=== PATIENT | female | born 1975 | race Two or more races ===

== ENCOUNTER → 2017-01-01 | Outpatient (CLI) | payer OTHER | LOC: OD 11:14 | PROVIDERS: ATTEND Family Medicine | DX: O26.851 Spotting complicating pregnancy, first trimester (principal) | CPT/HCPCS: 36415; 84702 ==

== ENCOUNTER 2017-07-16 16:03 | Outpatient (CLI) | payer MEDICAID | END 2017-07-16 17:01 | disposition home or self-care (01) | LOC: LC 16:03 | PROVIDERS: ATTEND Obstetrics & Gynecology | PROC: 4A1HXCZ Monitoring of Products of Conception, Cardiac Rate, External Approach (ICD-10-PCS; principal; 2017-07-16) | DX: O09.523 Supervision of elderly multigravida, third trimester (principal); Z3A.34 34 weeks gestation of pregnancy | CPT/HCPCS: 59025 ==

== ENCOUNTER 2017-07-24 09:02 | Outpatient (CLI) | payer MEDICAID ==
--- NOTE | 2017-07-24 09:09 | Non Stress Test Report ---
Non Stress Test Datetime Report Generated by CPN: 07/24/2017 09:09 DEMOGRAPHIC EGA NST: 34.3 INDICATION Indication for Study: Ordered by Provider Indication for Study (NST) Other: sent from the office MONITORING Monitor Explained: Monitor Explained; Test Explained; Patient Verbalized Understanding Time on Monitor: 07/16/2017 16:16 Time off Monitor: 07/16/2017 16:37 NST Duration: 21 NST INTERVENTIONS NST Interventions: PO Hydration; Reposition Patient Physician Notified NST: Gary BABY A: [id number] BABY A Movement : Present Contraction Frequency : 0 FHR Baseline : 125 Accelerations : 15X15 Decelerations : None Variability : Moderate 6-25bpm NST Review: Meets Criteria for Reactive NST NST Review and Verified By : MELISSA Major NST Results: Reactive NST REPORT Report Trigger: Send Report
--- NOTE | 2017-07-24 09:35 | Non Stress Test Report ---
Non Stress Test Datetime Report Generated by CPN: 07/24/2017 09:35 DEMOGRAPHIC EGA NST: 35.4 INDICATION Indication for Study: Ordered by Provider Indication for Study (NST) Other: AMA MONITORING Monitor Explained: Monitor Explained; Test Explained; Patient Verbalized Understanding Time on Monitor: 07/24/2017 09:11 Time off Monitor: 07/24/2017 09:32 NST Duration: 21 NST INTERVENTIONS NST Interventions: PO Hydration; Reposition Patient Physician Notified NST: Dr Strange BABY A Movement : Present Contraction Frequency : 0 FHR Baseline : 135 Accelerations : 15X15 Decelerations : None Variability : Moderate 6-25bpm NST Review: Meets Criteria for Reactive NST NST Review and Verified By : MELISSA Vasques Results: Reactive NST REPORT Report Trigger: Send Report
== END 2017-07-24 09:35 | disposition home or self-care (01) ==
LOC: LC 09:02
PROVIDERS: ATTEND Obstetrics & Gynecology
PROC: 4A1HXCZ Monitoring of Products of Conception, Cardiac Rate, External Approach (ICD-10-PCS; principal; 2017-07-24)
DX: O09.523 Supervision of elderly multigravida, third trimester (principal); Z3A.34 34 weeks gestation of pregnancy
CPT/HCPCS: 59025

== ENCOUNTER 2017-07-27 14:42 | Outpatient (CLI) | payer MEDICAID ==
--- NOTE | 2017-07-29 00:16 | Non Stress Test Report ---
Non Stress Test Datetime Report Generated by CPN: 07/29/2017 00:16 DEMOGRAPHIC EGA NST: 36.0 INDICATION Indication for Study: Ordered by Provider Indication for Study (NST) Other: AMA VITAL SIGNS Temperature - NST: 98.1 Pulse - NST: 90 RESP - NST: 16 NBPSYS NST: 103 NBPDIA NST: 55 MONITORING Monitor Explained: Monitor Explained; Test Explained; Patient Verbalized Understanding Time on Monitor: 07/27/2017 15:01 Time off Monitor: 07/27/2017 15:34 NST Duration: 33 NST INTERVENTIONS NST Interventions: PO Hydration; Reposition Patient BABY A: [id number] BABY A Movement : Present FHR Baseline : 135 Accelerations : 15X15 Decelerations : None Variability : Moderate 6-25bpm NST Review: Meets Criteria for Reactive NST NST Review and Verified By : A Cohen RN NST Results: Reactive NST REPORT Report Trigger: Send Report
== END 2017-07-27 15:37 | disposition home or self-care (01) ==
LOC: LC 14:42
PROVIDERS: ATTEND Student in an Organized Health Care Education/Training Program
PROC: 4A1HXCZ Monitoring of Products of Conception, Cardiac Rate, External Approach (ICD-10-PCS; principal; 2017-07-27)
DX: Z34.93 Encounter for supervision of normal pregnancy, unspecified, third trimester (principal)
CPT/HCPCS: 59025

== ENCOUNTER 2017-08-17 06:36 | Inpatient (IN) | payer MEDICAID ==
[2017-08-17] MEDS ORDERED: OXYTOCIN/NORMAL SALINE 20 UNIT/1,000 ML RTUINJ IV PRN ×2 (06:47→14:55)
[2017-08-17] MEDS ORDERED: RINGERS SOLUTION,LACTATED 1,000 ML IV PRN (06:47)
[2017-08-17] MEDS ORDERED: RINGERS SOLUTION,LACTATED 300 ML IV ONE (06:47)
[2017-08-17 07:23] LABS: ABSOLUTE LYMPHOCYTES (AUTO) 1.3 10^3/uL (0.5-4.7); ABSOLUTE MONOCYTES (AUTO) 0.3 10^3/uL (0.1-1.4); BASOPHILS % (AUTO) 0.4 % (0-2); EOSINOPHILS % (AUTO) 0.4 % (0-6); HEMATOCRIT 35.9 % (36.0-47.0); HEMOGLOBIN 12.5 g/dL (12.0-15.5); HGB HCT DIFFERENCE 1.6; LYMPHOCYTES % (AUTO) 15.1 % (13-45); MEAN CORPUSCULAR HEMOGLOBIN 32.4 pg (27.0-33.4); MEAN CORPUSCULAR HGB CONC 34.7 g/dL (32.0-36.0); MEAN CORPUSCULAR VOLUME 94 fl (80-97); MONOCYTES % (AUTO) 3.6 % (3-13); RED BLOOD COUNT 3.84 10^6/uL (3.72-5.28); RED CELL DISTRIBUTION WIDTH 14.2 % (11.5-14.0); SEGMENTED NEUTROPHILS % (AUTO) 80.5 % (42-78); WHITE BLOOD COUNT 8.7 10^3/uL (4.0-10.5)
[2017-08-17 07:32] LABS: APPEARANCE,URINE CLOUDY; BILIRUBIN,URINE NEGATIVE (NEGATIVE); GLUCOSE, URINE NEGATIVE (NEGATIVE); KETONES,URINE NEGATIVE (NEGATIVE); LEUKOCYTE ESTERASE,URINE LARGE (NEGATIVE); NITRITE,URINE NEGATIVE (NEGATIVE); PROTEIN,URINE NEGATIVE (NEGATIVE); URINE SPECIFIC GRAVITY 1.014; UROBILINOGEN,URINE NEGATIVE mg/dL (<2.0)
[2017-08-17 07:50] LABS: URINE BARBITURATES SCREEN NEGATIVE; URINE METHADONE SCREEN NEGATIVE; URINE OPIATES LOW NEGATIVE; URINE PHENCYCLIDINE SCREEN NEGATIVE
[2017-08-17] MEDS ORDERED: MISOPROSTOL 0.2 MG TABLET ONE (08:17)
[2017-08-17] MEDS ORDERED: LIDOCAINE 1% INJ-PF (10 MG/ML) 30 ML SDV ONE (08:17)
[2017-08-17] MEDS ORDERED: OXYTOCIN/NORMAL SALINE 20 UNIT/1,000 ML RTUINJ ONE (08:17)
[2017-08-17] MEDS ORDERED: PENICILLIN G-K 5 MILLION UNIT VIAL ONE ×2 (08:18→12:35)
--- NOTE | 2017-08-17 10:53 | L&D Progress Notes ---
PROGRESS NOTES Datetime Report Generated by CPN: 08/17/2017 10:52 PROGRESS NOTE Impression: Reassuring Heart Rate Plan: Continue Present Management Informed Consent Obtained: Vaginal Delivery Vital Signs : Reviewed; Within Normal Limits Comment: Comfortable, will start Pitocin after GBS antibiotics infused x 4 hours MEMBRANES Membranes: Intact FETUS A FHR - Baseline: 130 Monitoring: External US Variability: Moderate 6-25bpm Accelerations: 15X15 Decelerations: None FHR Category: Category I SIGNATURE SIGNATURE: [id number];[id number] SIGNATURE: [id number] SIGNATURE: [id number] SIGNATURE: [id number] Assignment: Emilee Monae MD Signature: with User ID: Lorena : with User ID: [email or web address]
--- NOTE | 2017-08-17 13:28 | L&D Progress Notes ---
PROGRESS NOTES Datetime Report Generated by CPN: 08/17/2017 13:28 PROGRESS NOTE Impression: Reassuring Heart Rate Procedures: Artificial ROM; Sterile Vag Exam Plan: Continue Present Management; Induction; Anticipate Vaginal Delivery Informed Consent Obtained: Vaginal Delivery Vital Signs : Reviewed; Within Normal Limits Comment: VE, internal os 6-7. ext os 4-5/ 80/vtx/0,uc's q 2-3 x 60, does not want a epidural. Antibiotic x 2, Cat 1 MEMBRANES Membranes: Ruptured FETUS A FHR - Baseline: 155 Monitoring: External US Variability: Moderate 6-25bpm Accelerations: 15X15 Decelerations: Variable FETUS C SIGNATURE: [id number];[id number] Assignment: Emilee Monae MD Signature: with User ID: [email or web address] : with User ID: [email or web address]
[2017-08-17] MEDS ORDERED: GLYCERIN/WITCH HAZEL LEAF 1 EACH MED..PAD TP PRN (14:55)
[2017-08-17] MEDS ORDERED: DIPHENHYDRAMINE HCL 25 MG CAPSULE PO PRN (14:55)
[2017-08-17] MEDS ORDERED: MAGNESIUM HYDROXIDE SUSP 30 ML UDCUP PO PRN (14:55)
[2017-08-17] MEDS ORDERED: MEASLES,MUMPS&RUBELLA VACC/PF 0.5 ML VIAL SUBCUT PRN (14:55)
[2017-08-17] MEDS ORDERED: NA PHOS,M-B/NA PHOS,DI-BA (ADULT) 133 ML ENEMA PR PRN (14:55)
[2017-08-17] MEDS ORDERED: PROMETHAZINE HCL 25 MG TABLET PO PRN (14:55)
[2017-08-17] MEDS ORDERED: BENZOCAINE/MENTHOL AEROSOL SPRAY 56 ML TOP PRN (14:55)
[2017-08-17] MEDS ORDERED: ACETAMINOPHEN 650 MG SUPP.RECT PR PRN (14:55)
[2017-08-17] MEDS ORDERED: MISOPROSTOL 0.2 MG TABLET PR ONE (14:55)
[2017-08-17] MEDS ORDERED: PSEUDOEPHEDRINE HCL 30 MG TABLET PO PRN (14:55)
[2017-08-17] MEDS ORDERED: PROMETHAZINE HCL 25 MG SUPP.RECT PR PRN (14:55)
[2017-08-17] MEDS ORDERED: DIPH/PERTUSS(ACELL)/TETANUS VAC/PF 0.5 ML SYR (>=10YO) IM PRN (14:55)
[2017-08-17] MEDS ORDERED: ACETAMINOPHEN WITH CODEINE #3 TABLET PO PRN ×2 (14:55)
[2017-08-17] MEDS ORDERED: PROMETHAZINE HCL INJ 25 MG/1 ML VIAL IV PRN (14:55)
[2017-08-17] MEDS ORDERED: DIBUCAINE 1% OINTMENT 28 GM TP PRN (14:55)
[2017-08-17 15:07] LABS: ARTERIAL BLOOD BASE EXCESS -2.6 mmol/L; ARTERIAL BLOOD O2 SATURATION 42.7 % (94-98)
[2017-08-17] MEDS ORDERED: IBUPROFEN 800 MG TABLET ONE (15:33)
--- NOTE | 2017-08-17 16:23 | Delivery Summary ---
Del Sum A-C Datetime Report Generated by CPN: 08/17/2017 16:23 DELIVERY PERSONNEL DELIVERY PERSONNEL: [id number] Delivery Doctor:: Jessica Olmedo CNM Labor and Delivery Nurse:: Samantha Painting RNcuratorial assistant Nurse:: Kristin Cohen RN Water Treatment Plant Repairer/VIDEO GAMES STORYWRITER: Estelle Quiroga ST Water Treatment Plant Repairer/VIDEO GAMES STORYWRITER: Maame Lopez CST Additional Personnel: : SKIP Schmidt MATERNAL INFORMATION Delivery Anesthesia: None Medications After Delivery: Pitocin Bolus-Please Comment; Pitocin Drip 20 Units/1000ml NSS; Cytotec 600mcg Per Rectum/Vagina Estimated Blood Loss (ml): 400 Maternal Complications: None Provider Comments: FSE applied, decelerations, Pitocin off, start pushing With delivery of vtx, pt stopped pushing, Yoni, pushed, suprapubic pressure with delivery of from OA to CARROL, placed on mothers abd, cord clamped and cut, placed in [place] for evaluation by nurses, cord gas to lab, Spont delivery of grossly nl intact placenta, 3 VC, EBL = 400cc, body cord x 1, FFFM, Pitocin, massage and Cytotec 600 mcg via rectum no tears, baby and mom remain in recovery in stable condition LABOR SUMMARY EDC: 08/24/2017 00:00 No. Babies in Womb: 1 Attempted: No Labor Anesthesia: None LABOR INFORMATION Reason for Induction: Other Reason for Induction- Other: AMA Onset of Labor: 08/17/2017 11:30 Complete Dilatation: 08/17/2017 14:28 Oxytocin: Induction Group B Beta Strep: positive Antibiotics # of Doses: 2 Antibiotics Time of Last Dose: 12:30 Name of Antibiotic Given: penicillin Steroids Given: None Reason Steroids Not Administered: Not Applicable MEMBRANES Membranes Rupture Method: Artificial Rupture of Membranes: 08/17/2017 13:17 Length of Rupture (hr): 1.33 Amniotic Fluid Color: Clear Amniotic Fluid Amount: Small Amniotic Fluid Odor: Normal STAGES OF LABOR Stage 1 hr: 2 Stage 1 min: 58 Stage 2 hr: 0 Stage 2 min: 9 Stage 3 hr: 0 Stage 3 min: 5 Total Time in Labor hr: 3 Total Time in Labor min: 12 VAGINAL DELIVERY Episiotomy: None Laceration #1: None Laceration Extension #1: N/A Laceration Repair: Not Applicable Sponge Count Correct: N/A Sharps Count Correct: N/A CSECTION DELIVERY Primary Indication: N/A Secondary Indication: N/A CSection Incidence: N/A Labor: N/A Elective: N/A CSection Incision: N/A BABY A INFORMATION Delivery Date/Time: 08/17/2017 14:37 Method of Delivery: Vaginal Born in Route : No : N/A Forceps: N/A Vacuum Extraction: N/A Shoulder Dystocia : No PRESENTATION/POSITION BABY A Presentation: Cephalic Cephalic Presentation: Vertex Vertex Position: Left Occipital Anterior Breech Presentation: N/A PLACENTA INFORMATION BABY A Placenta Delivery Time : 08/17/2017 14:42 Placenta Method of Delivery: Spontaneous Placenta Status: Delivered SCORES BABY A Heart Rate 1 min: >100 bpm Resp Effort 1 min: Good Cry Reflex Irritability 1 min: Cough or Sneeze or Pulls Away Muscle Tone 1 min: Some Flexion of Extremities Color 1 min: Blue/Pale Resuscitation Effort 1 min: Tactile Stimulation SCORE 1 MIN: 7 Heart Rate 5 min: >100 bpm Resp Effort 5 min: Good Cry Reflex Irritability 5 min: Cough or Sneeze or Pulls Away Muscle Tone 5 min: Active Motion Color 5 min: Body Tull, Extremities Blue Resuscitation Effort 5 min: Tactile Stimulation SCORE 5 MIN: 9 INFANT INFORMATION BABY A Gestational Age at Delivery: 39.0 Gestational Status: Full Term- 39- 40.6 Weeks Outcome : Liveborn Condition : Stable Sex: Female IDENTIFICATION BABY A Infant Verification Date/Time: 08/17/2017 15:50 ID Band Number: [id number] Mother's Name Verified: Yes RN Verifying : A Cohen RN N Painting RN WEIGHT/LENGTH BABY A Birthweight (gm): 3020 Weight (lb): 6 Weight (oz): 11 Infant Length (in): 20.25 Infant Length (cm): 51.44 CORD INFORMATION BABY A No. Cord Vessels: 3 Nuchal Cord : N/A Nuchal Cord- Other: body cord Cord Blood Taken: Yes-For Eval (Mom's Blood Type - or O+) Suction: Mouth; Nose ASSESSMENT BABY A Infant Complications: Multiple Variable Decels Physical Findings at Delivery: Within Normal Limits Respirations: Appears Normal Courtroom Deputy Or Calendar Clerk/ALS Called : No Infant Care By: KGarcia RNC Transferred To: Remains with Mother BABY B INFORMATION : N/A
--- NOTE | 2017-08-17 16:54 | Admission Physical ---
Datetime Report Generated by CPN: 08/17/2017 16:53 CURRENT ADMISSION Hx Assessment: The History has been Reviewed and is Current Chief Complaint: Scheduled Induction of Labor Indication for Induction: Term, Intrauterine ; No Active Labor; Intact Membranes; Induction of Labor Indication for Induction- Other: AMA Admit Plan: Admit to Unit; Initiate Labor Induction Protocol ALLERGIES Medication Allergies: Yes Medication Allergies: lamotrigine (07/27/2017) Medication Allergies: lamotrigine (07/24/2017) Latex: No Latex Allergies Food Allergies: None Environmental Allergies: None OBSTETRICAL HISTORY EDC: 08/24/2017 00:00 : 3 Para: 2 Term: 2 : 0 SAB: 0 IAB: 0 Ectopic: 0 Livin Cesareans: 0 VBACs: 0 Multiple Births: 0 Gestational Diabetes: No Rh Sensitization: No Incompetent Cervix: No DAT: No Infertility: No ART Treatment: No Uterine Anomaly: No IUGR: No Hx Previous C/S: No Macrosomia: No Hx Loss/Stillborn: No PIH: No Hx : No Placenta Previa/Abruption: No Depression/PP Depression: Yes PTL/PROM: No Post Hemorrhage: No Current Procedures: Ultrasound; NST Obstetrical History Comments: G1 - 1995, , Baby girl G2 - 1997, , Baby boy G3 - current SEE RECORDS Alcohol: No Marijuana : No Cocaine: No Other Illicit Drugs: No Cigarettes: Never Smoker. [id number] MEDICAL HISTORY Diabetes: No Blood Transfusion: No Pulmonary Disease (Asthma, TB): No Breast Disease: No Hypertension: No Director Of Partnerships Surgery: Yes Heart Disease: No Hosp/Surgery: No Autoimmune Disorder: No Anesthetic Complications: No Kidney Disease: No Abnormal Pap Smear: No Neuro/Epilepsy: No Psychiatric Disorders: No Other Medical Diseases: No Hepatitis/Liver Disease: No Significant Family History: No Varicosities/Phlebitis: No Trauma/Violence : No Thyroid Dysfunction: No Medical History Comments: Asthma, D_C in 2015 INFECTIOUS HISTORY Gonorrhea: No Genital Herpes: No Chlamydia: No Tuberculosis: No Syphilis: No Hepatitis: No HIV/AIDS Exposure: No Rash or Viral Illness: No HPV: No PHYSICAL EXAM General: Normal HEENT: Deferred Neurologic: Normal Thyroid: Normal Heart: Normal Lungs: Normal Breast: Deferred Back: Normal Abdomen: Normal Genitourinary Exam: Normal Extremities: Normal DTRs: Normal Pelvic Type: Adequate Physical Exam Comments: AMA Bipolar + GBS MEMBRANES Membranes: Ruptured Membranes: Intact FETUS A EGA: 39.0 Monitoring: External US FHR- Baseline: 130 Variability: Moderate 6-25bpm Accelerations: 15X15 Admit Comment: VE = 5-6 external os. 3-4 internal, 0 station, + show, sono = vtx, hsb at , will start GBS meds, ROM after 4 hours, POC discussed with pt and family, Cat 1 strip PLANS FOR LABOR AND DELIVERY Labor and Delivery: None Pain Management: Natural Feeding Preference: Breast Benefit of Breast Feed Discussed: Yes Circumcision: N/A INFORMED CONSENT Informed Consent Obtained: Vaginal Delivery Informed Consent Obtained: Vaginal Delivery Assignment: Emilee Monae MD Signature: with User ID: Lorena : with User ID: [email or web address]
[2017-08-17] MEDS ORDERED: INFLUENZA ADLT QUAD (36MOS+) 2017-18 VAC 0.5 ML SYR IM PRN (17:18)
[2017-08-17] MEDS: FERROUS SULFATE 325 MG TABLET PO SCH (18:53)
[2017-08-17] MEDS: DOCUSATE SODIUM 100 MG CAPSULE PO SCH (18:53)
[2017-08-17] MEDS: IBUPROFEN 800 MG TABLET PO SCH (21:43)
[2017-08-17] MEDS: FAMOTIDINE 20 MG TABLET PO SCH (21:44)
[2017-08-18] MEDS: IBUPROFEN 800 MG TABLET PO SCH ×3 (05:47→22:14)
[2017-08-18 07:30] LABS: HEMATOCRIT 33.1 % (36.0-47.0); HEMOGLOBIN 11.5 g/dL (12.0-15.5); HGB HCT DIFFERENCE 1.4; MEAN CORPUSCULAR HEMOGLOBIN 32.8 pg (27.0-33.4); MEAN CORPUSCULAR HGB CONC 34.8 g/dL (32.0-36.0); MEAN CORPUSCULAR VOLUME 94 fl (80-97); RED BLOOD COUNT 3.51 10^6/uL (3.72-5.28); RED CELL DISTRIBUTION WIDTH 14.4 % (11.5-14.0); WHITE BLOOD COUNT 13.3 10^3/uL (4.0-10.5)
[2017-08-18] MEDS: PRENATAL VITAMIN W DHA CAPSULE PO SCH (09:22)
[2017-08-18] MEDS: DOCUSATE SODIUM 100 MG CAPSULE PO SCH ×2 (09:22→17:41)
[2017-08-18] MEDS: SENNOSIDES/DOCUSATE 8.6-50 MG 1 EACH TABLET PO SCH (09:22)
[2017-08-18] MEDS: FAMOTIDINE 20 MG TABLET PO SCH ×2 (09:22→22:13)
[2017-08-18] MEDS: FERROUS SULFATE 325 MG TABLET PO SCH ×2 (09:22→17:41)
--- NOTE | 2017-08-18 12:24 | PDOC PROGRESS REPORT ---
Subjective-OB Subjective: Post Delivery Day:1 41 year old G3 now P3 s/p ppd1. Ambulating, and voiding without difficulty. Denies any needs at this time Physical Exam (OB) Vital Signs: Temp Pulse Resp BP Pulse Ox 98.5 F 84 18 106/65 100 08/18/17 08:15 08/18/17 08:15 08/18/17 08:15 08/18/17 08:15 08/18/17 08:15 Intake & Output 08/17/17 08/18/17 08/19/17 06:59 06:59 06:59 Weight 76.65 kg - General General Appearance: Appears well In distress: None - Episiotomy/Laceration Site Condition: N/A - Lochia Lochia Amount: Small 10-25 ml Lochia Color: Rubra/Red - Abdomen Description: Soft, Round Hernia Present: No Fundal Description: Firm, Midline Fundal Height: u/u - u/2 - Respiratory Respiratory Status: No respiratory distress - Extremities Upper extremity: Normal inspection Lower extremities: Normal inspection - Neurological Cognition: Normal Orientation: AAOx4 - Psychological Associated symptoms: Normal affect, Normal mood Objective-Diagnostic Laboratory: 08/18/17 07:00 08/17/17 08/18/17 14:37 07:00 WBC 13.3 H RBC 3.51 L Hgb 11.5 L Hct 33.1 L MCV 94 MCH 32.8 MCHC 34.8 RDW 14.4 H Plt Count 178 Carbonic Acid 1.10 HCO3/H2CO3 Ratio 19:1 ABG pH 7.39 ABG pCO2 36.5 ABG pO2 24.0 L* ABG HCO3 21.7 ABG O2 Saturation 42.7 L ABG Base Excess -2.6 FiO2 CORD BLOOD Assessment and Plan(PN) - Assessment and Plan (1) Advanced maternal age (AMA), 40 years or greater Is this a current diagnosis for this admission?: Yes Plan: routine pp care (2) Normal vaginal delivery Is this a current diagnosis for this admission?: Yes Plan: routine pp care - Time Spent with Patient Time with patient: Less than 15 minutes Medications reviewed and adjusted accordingly: Yes - Disposition Anticipated Discharge: Home Within: within 24 hours
[2017-08-19] MEDS: IBUPROFEN 800 MG TABLET PO SCH (06:13)
[2017-08-19 08:28] VITALS: BP 105/64
[2017-08-19] MEDS: FAMOTIDINE 20 MG TABLET PO SCH (09:25)
[2017-08-19] MEDS: DOCUSATE SODIUM 100 MG CAPSULE PO SCH (09:25)
[2017-08-19] MEDS: PRENATAL VITAMIN W DHA CAPSULE PO SCH (09:26)
[2017-08-19] MEDS: FERROUS SULFATE 325 MG TABLET PO SCH (09:26)
[2017-08-19] MEDS: SENNOSIDES/DOCUSATE 8.6-50 MG 1 EACH TABLET PO SCH (09:26)
--- NOTE | 2017-08-19 10:30 | PDOC DISCHARGE SUMMARY ---
Final Diagnosis Discharge Date: 08/19/17 - Final Diagnosis (1) Advanced maternal age (AMA), 40 years or greater Is this a current diagnosis for this admission?: Yes (2) Normal vaginal delivery Is this a current diagnosis for this admission?: Yes Discharge Data - Discharge Medication Home Medications: Pnv,Calcium 72/Iron/Folic Acid [Pnv Plus Multivit Tab] 1 tab PO DAILY 07/24/17 Reason(s) for Admission: Induction of Labor Procedures: NST, Ultrasound Intrapartum Procedure(s): Spontaneous Vaginal Delivery - Diagnosis Test Laboratory: Temp Pulse Resp BP Pulse Ox 98.5 F 85 18 105/64 100 08/19/17 08:00 08/19/17 08:00 08/19/17 08:00 08/19/17 08:00 08/19/17 08:00 08/17/17 08/17/17 08/18/17 06:52 07:01 07:00 RBC 3.84 3.51 L Hgb 12.5 11.5 L Hct 35.9 L 33.1 L Urine Opiates Screen NEGATIVE - Discharge information/Instructions Discharge Activity: Activity As Tolerated Discharge Diet: Regular Disposition: HOME, SELF-CARE Follow up with: [facility] in: 4
== END 2017-08-19 13:46 | disposition home or self-care (01) | DRG 775 ==
LOC: LR 06:36 → 2N 16:39
PROVIDERS: ADMIT Obstetrics & Gynecology; ATTEND Obstetrics & Gynecology
PROC: 10E0XZZ Delivery of Products of Conception, External Approach (ICD-10-PCS; principal; 2017-08-17)
PROC: 10907ZC Drainage of Amniotic Fluid, Therapeutic from Products of Conception, Via Natural or Artificial Opening (ICD-10-PCS; 2017-08-17)
PROC: 3E033VJ Introduction of Other Hormone into Peripheral Vein, Percutaneous Approach (ICD-10-PCS; 2017-08-17)
PROC: 4A1HXCZ Monitoring of Products of Conception, Cardiac Rate, External Approach (ICD-10-PCS; 2017-08-17)
PROC: 3E0234Z Introduction of Serum, Toxoid and Vaccine into Muscle, Percutaneous Approach (ICD-10-PCS; 2017-08-19)
PROC: 3E0234Z Introduction of Serum, Toxoid and Vaccine into Muscle, Percutaneous Approach (ICD-10-PCS; 2017-08-19)
DX: O99.824 Streptococcus B carrier state complicating childbirth (principal); O69.81X0 Labor and delivery complicated by cord around neck, without compression, not applicable or unspecified; Z23 Encounter for immunization; Z88.8 Allergy status to other drugs, medicaments and biological substances; Z3A.39 39 weeks gestation of pregnancy; Z37.0 Single live birth
CPT/HCPCS: 36415; 80307; 81005; 82803; 85025; 85027; 86592; 86850; 86900; 86901; 90686; 90715; J2540; J2590; J3490

== ENCOUNTER 2017-10-22 05:28 | Day surgery (SDC) | payer MEDICAID ==
[2017-10-16 11:46] LABS: APPEARANCE,URINE CLEAR; BILIRUBIN,URINE NEGATIVE (NEGATIVE); COLOR,URINE STRAW; GLUCOSE, URINE NEGATIVE (NEGATIVE); KETONES,URINE NEGATIVE (NEGATIVE); LEUKOCYTE ESTERASE,URINE SMALL (NEGATIVE); NITRITE,URINE NEGATIVE (NEGATIVE); PROTEIN,URINE NEGATIVE (NEGATIVE); URINE SPECIFIC GRAVITY 1.002; UROBILINOGEN,URINE NEGATIVE mg/dL (<2.0)
[2017-10-16 11:54] LABS: HEMATOCRIT 38.3 % (36.0-47.0); HEMOGLOBIN 13.1 g/dL (12.0-15.5); MEAN CORPUSCULAR HEMOGLOBIN 30.6 pg (27.0-33.4); MEAN CORPUSCULAR HGB CONC 34.2 g/dL (32.0-36.0); MEAN CORPUSCULAR VOLUME 89 fl (80-97); PLATELET COUNT 274 10^3/uL (150-450); RED BLOOD COUNT 4.28 10^6/uL (3.72-5.28); RED CELL DISTRIBUTION WIDTH 13.3 % (11.5-14.0); WHITE BLOOD COUNT 6.3 10^3/uL (4.0-10.5)
[~2017-10-22 05:28] MED LIST: LACTATED RINGERS 1000 ML IV PRN; LIDOCAINE 0.5% INJ-PF (5 MG/ML) 50 ML SDV SUBCUT PRN
[2017-10-22] MEDS ORDERED: HYDROMORPHONE HCL INJ/PF 2 MG/ML AMPULE ONE (06:46)
[2017-10-22] MEDS ORDERED: DEXAMETHASONE SOD PHOSPHATE INJ 4 MG/1 ML VIAL ONE (06:47)
[2017-10-22] MEDS ORDERED: FENTANYL CITRATE INJ/PF 100 MCG/2 ML AMPUL ONE ×2 (06:47→08:49)
[2017-10-22] MEDS ORDERED: MIDAZOLAM 2 MG/2 ML INJ ONE (06:47)
[2017-10-22] MEDS ORDERED: ONDANSETRON HCL INJ/PF 4 MG/2 ML SDV ONE (06:47)
[2017-10-22] MEDS ORDERED: ACETAMINOPHEN 100 ML IV ONE (06:47)
[2017-10-22] MEDS ORDERED: PROPOFOL INJ 200 MG/20 ML VIAL IV ONE (06:47)
[2017-10-22] MEDS ORDERED: MORPHINE SULFATE 10 MG/ML INJ IV PRN (07:53)
[2017-10-22] MEDS ORDERED: ONDANSETRON HCL INJ/PF 4 MG/2 ML SDV IV PRN (07:53)
[2017-10-22] MEDS ORDERED: MEPERIDINE HCL/PF INJ 25 MG/1 ML DISP.SYRIN IV PRN (07:53)
[2017-10-22] MEDS ORDERED: FENTANYL CITRATE INJ/PF 100 MCG/2 ML AMPUL IV PRN ×4 (07:53→08:39)
[2017-10-22] MEDS ORDERED: DIPHENHYDRAMINE HCL 50 MG/ML VIAL IV PRN (07:53)
[2017-10-22] MEDS ORDERED: PROMETHAZINE HCL INJ 25 MG/1 ML VIAL IV PRN (07:53)
[2017-10-22] MEDS ORDERED: SUCCINYLCHOLINE CHLORIDE INJ 200 MG/10 ML VIAL ONE (08:18)
[2017-10-22] MEDS ORDERED: ROCURONIUM BROMIDE INJ 50 MG/5 ML VIAL IV ONE (08:18)
--- NOTE | 2017-10-22 08:38 | OPERATIVE REPORT E ---
Operative Report NAME: DELANO LOZA : 1975 AGE: 41Y DATE OF SURGERY: 10/22/2017 ROOM: PREOPERATIVE DIAGNOSIS: Undesired fertility. POSTOPERATIVE DIAGNOSIS: Undesired fertility. PROCEDURE: Laparoscopic tubal cauterization. SURGEON: ROBERTH PACKER M.D. ANESTHESIA: Dr. Fisher with general. FINDINGS: Normal uterus, tubes and ovaries. COMPLICATIONS: None. ESTIMATED BLOOD LOSS: 10 mL. SPECIMENS REMOVED: None. PROCEDURE IN DETAIL: The patient was taken to the operating room, prepared and draped in a normal sterile fashion in a dorsal lithotomy position. Under sterile conditions an in-and-out cath was performed of approximately 50 mL of clear urine. A sterile speculum was placed in the vagina and the cervix was prepped with Betadine. The anterior lip was grasped with a single-tooth tenaculum and the cervix was then transected with a Hulka clamp for uterine mobility. The tenaculum and the speculum were then removed, gloves were changed, and attention was turned to the upper portion of the case where an umbilical skin incision was made to accommodate a 5 mm port. Through this incision I placed a Veress needle and insufflated the abdomen with approximately 2 L of CO2 gas. The Veress needle was removed and a 5 mm trocar was placed through this incision to accommodate the camera which was done under direct visualization. The camera was introduced and under direct visualization another 5 mm port was placed in the left lower quadrant. The patient was then placed in Trendelenburg and the bowel was swept away with a blunt probe. Beginning with the left fallopian tube I grasped this with a Kleppinger and I did cauterize the entire fallopian tube to the fimbriated end to ensure adequate sterilization. I repeated this procedure on the right fallopian tube without difficulty. A picture was taken to confirm fallopian tube cauterization. The Kleppinger was removed and the lower port was removed under direct visualization. The patient was taken out of Trendelenburg, the camera was removed, and the patient's abdomen was deflated through the umbilical trocar until almost all gas was expelled and then the trocar was removed without difficulty. The skin was closed at both sites using 4-0 Vicryl. The Hulka clamp was then removed without difficulty at the vagina. The patient tolerated the procedure well. Sponge, lap and needle counts were correct x2 and the patient was taken to the PACU in stable condition. DICTATING PHYSICIAN: ROBERTH PACKER M.D. [id number] PHY#: [id number] ID: [id number] JOB#: [id number] ACCT: [id number] cc:ROBERTH PACKER M.D. >
[2017-10-22] MEDS ORDERED: OXYCODONE-ACETAMINOPHEN 5-325 MG TABLET PO PRN ×2 (09:08)
[2017-10-22] MEDS ORDERED: IBUPROFEN 800 MG TABLET PO PRN (09:08)
[2017-10-22] MEDS ORDERED: RINGERS SOLUTION,LACTATED 1,000 ML IV PRN (09:09)
[2017-10-22] MEDS ORDERED: PROMETHAZINE HCL INJ 25 MG/1 ML VIAL ONE (09:09)
[2017-10-22 12:33] VITALS: BP 104/65
== END 2017-10-22 11:00 | disposition home or self-care (01) ==
LOC: OROUT 05:28
PROVIDERS: ATTEND Obstetrics & Gynecology
PROC: 0U574ZZ Destruction of Bilateral Fallopian Tubes, Percutaneous Endoscopic Approach (ICD-10-PCS; principal; 2017-10-22 07:30)
DX: Z30.2 Encounter for sterilization (principal); Z88.8 Allergy status to other drugs, medicaments and biological substances
CPT/HCPCS: 58670; 36415; 85027; 81005; 81025; J2250; J3490; J1100; J3010; J1170; J2550; J0330; J2405; J2704; J0131

== ENCOUNTER 2017-12-20 11:46 | Emergency (ER) | payer MEDICAID ==
[2017-12-20 12:35] LABS: ABSOLUTE LYMPHOCYTES (AUTO) 0.9 10^3/uL (0.5-4.7); ABSOLUTE MONOCYTES (AUTO) 0.3 10^3/uL (0.1-1.4); ABSOLUTE NEUT (AUTO) 7.9 10^3/uL (1.7-8.2); BASOPHILS % (AUTO) 0.1 % (0-2); EOSINOPHILS % (AUTO) 0.1 % (0-6); HEMATOCRIT 39.3 % (36.0-47.0); HEMOGLOBIN 13.6 g/dL (12.0-15.5); LYMPHOCYTES % (AUTO) 9.5 % (13-45); MEAN CORPUSCULAR HEMOGLOBIN 30.6 pg (27.0-33.4); MEAN CORPUSCULAR HGB CONC 34.7 g/dL (32.0-36.0); MEAN CORPUSCULAR VOLUME 88 fl (80-97); MONOCYTES % (AUTO) 3.6 % (3-13); PLATELET COUNT 332 10^3/uL (150-450); RED BLOOD COUNT 4.46 10^6/uL (3.72-5.28); SEGMENTED NEUTROPHILS % (AUTO) 86.7 % (42-78); TOTAL CELLS COUNTED % (AUTO) 100 %; WHITE BLOOD COUNT 9.1 10^3/uL (4.0-10.5)
[2017-12-20 12:54] LABS: ACETAMINOPHEN < 10 ug/mL (10-30); ALANINE AMINOTRANSFERASE 48 U/L (9-52); ALBUMIN 4.9 g/dL (3.5-5.0); ALCOHOL < 10 mg/dL (NONE DETECTED); ALKALINE PHOSPHATASE 81 U/L (38-126); ASPARTATE AMINO TRANSFERASE 28 U/L (14-36); BILIRUBIN,DIRECT 0.3 mg/dL (0.0-0.4); BILIRUBIN,TOTAL 0.5 mg/dL (0.2-1.3); BLOOD UREA NITROGEN 7 mg/dL (7-20); CALCIUM 10.4 mg/dL (8.4-10.2); GLUCOSE 87 mg/dL (75-110); POTASSIUM 4.2 mmol/L (3.6-5.0); TOTAL PROTEIN 8.4 g/dL (6.3-8.2)
[2017-12-20 12:55] LABS: SALICYLATE < 1.0 mg/dL (2.0-20.0)
[2017-12-20 12:58] LABS: CARBON DIOXIDE 19 mmol/L (22-30); CHLORIDE 106 mmol/L (98-107); SODIUM 146.6 mmol/L (137-145)
[2017-12-20 12:59] LABS: ANION GAP 22 (5-19)
--- NOTE | 2017-12-20 12:59 | ER Document Report ---
ED Psych Disorder / Suicide - General Chief Complaint: Psych Problem Stated Complaint: ALTERED MENTAL STATUS Time Seen by Provider: 12/20/17 12:05 Notes: The patient is a 42-year-old female, past medical history bipolar, presents by EMS after her daughter found her to be manic. Patient has been off of her psychiatric medications for the past 10 months since she was and is breast-feeding. According to the daughter, the patient has not slept for 7 days and was expressing suicidal thoughts. When EMS arrived, the patient was confused and disoriented. She received 2 mg Versed IM, 5 mg Haldol IM and 25 mg Benadryl IM. Patient is sleepy and unable to provide any additional history. TRAVEL OUTSIDE OF THE [place] IN LAST 30 DAYS: No - Related Data Allergies/Adverse Reactions: lamotrigine [From Lamictal] Allergy (Verified 10/22/17 05:52) Generalized rash Past Medical History - General Information source: Patient, Relative - Daughter, Emergency Med Personnel Cannot obtain history due to: Altered mental status - Social History Smoking Status: Never Smoker Chew tobacco use (# tins/day): No Frequency of alcohol use: None Drug Abuse: None Family History: Reviewed & Not Pertinent Patient has suicidal ideation: No Patient has homicidal ideation: No - Past Medical History Cardiac Medical History: Denies: Hx Coronary Artery Disease, Hx Heart Attack, Hx Hypertension Pulmonary Medical History: Denies: Hx Asthma, Hx Bronchitis, Hx COPD, Hx Pneumonia Neurological Medical History: Denies: Hx Cerebrovascular Accident, Hx Seizures Renal/ Medical History: Denies: Hx Peritoneal Dialysis Musculoskeltal Medical History: Denies Hx Arthritis Psychiatric Medical History: Reports: Hx Depression - Immunizations Hx Diphtheria, Pertussis, Tetanus Vaccination: Yes Review of Systems - Review of Systems -: Yes ROS unobtainable due to patient's medical condition Physical Exam - Vital signs Vitals: Temp Pulse Resp BP Pulse Ox 98.8 F 90 18 103/67 95 12/20/17 11:56 12/20/17 11:56 12/20/17 11:56 12/20/17 11:56 12/20/17 11:56 - Notes Notes: PHYSICAL EXAMINATION: GENERAL: Well-appearing, well-nourished and in no acute distress. Sleepy. HEAD: Atraumatic, normocephalic. EYES: Pupils equal round and reactive to light, extraocular movements intact, sclera anicteric, conjunctiva are normal. ENT: nares patent, oropharynx clear without exudates. Moist mucous membranes. NECK: Normal range of motion, supple without lymphadenopathy LUNGS: Breath sounds clear to auscultation bilaterally and equal. No wheezes rales or rhonchi. HEART: Regular rate and rhythm without murmurs ABDOMEN: Soft, nontender, normoactive bowel sounds. No guarding, no rebound. No masses appreciated. EXTREMITIES: Normal range of motion, no pitting or edema. No cyanosis. NEUROLOGICAL: Cranial nerves grossly intact. Normal speech. Normal sensory and motor exams. PSYCH: Cooperative mood. SKIN: Warm, Dry, normal turgor, no rashes or lesions noted. Course - Re-evaluation Re-evalutation: 12/20/17 12:57 Pt with acute psychosis over the past week, according to the daughter and EMS. Patient was sedated due to active psychosis by EMS and unable to provide any additional history at this time. She has been off her psych meds for 10 months. Will medically evaluate patient and then have mental health evaluate patient. 12/20/17 17:41 Mental Health evaluated patient and is recommending Zyprexa 5 mg twice daily, Depakote 250 mg twice daily, Cogentin 1 mg daily and Geodon 20 mg every 8 hours as needed for jaw agitation and aggression. - Vital Signs Vital signs: Temp Pulse Resp BP Pulse Ox 98.8 F 90 18 103/67 95 12/20/17 11:56 12/20/17 11:56 12/20/17 11:56 12/20/17 11:56 12/20/17 11:56 - Laboratory Result Diagrams: 12/20/17 12:07 12/20/17 12:07 Laboratory results interpreted by nd: 12/20/17 12/20/17 12/20/17 12:07 12:07 15:20 Seg Neutrophils % 86.7 H Lymphocytes % 9.5 L Sodium 146.6 H Carbon Dioxide 19 L Anion Gap 22 H Calcium 10.4 H Total Protein 8.4 H Urine Protein 30 H Urine Ketones 80 H Salicylates < 1.0 L Acetaminophen < 10 L - EKG Interpretation by Fl EKG shows normal: Sinus rhythm, [place], Intervals, QRS Complexes, ST-T Waves Rate: Tachycardia When compared to previous EKG there are: Previous EKG unavailable Discharge - Discharge Clinical Impression: Psychosis Qualifiers: Psychosis type: unspecified psychosis type Qualified Code(s): F29 - Unspecified psychosis not due to a substance or known physiological condition Condition: Fair Referrals: SENIA WEBB MD [Primary Care Provider] - Follow up as needed
[2017-12-20] MEDS ORDERED: NORMAL SALINE 1000 ML 1,000 ML IV PRN (13:00)
[2017-12-20 15:43] LABS: APPEARANCE,URINE SLIGHTLY-CLOUDY; BILIRUBIN,URINE NEGATIVE (NEGATIVE); COLOR,URINE YELLOW; GLUCOSE, URINE NEGATIVE (NEGATIVE); KETONES,URINE 80 mg/dL (NEGATIVE); LEUKOCYTE ESTERASE,URINE NEGATIVE (NEGATIVE); NITRITE,URINE NEGATIVE (NEGATIVE); PROTEIN,URINE 30 mg/dL (NEGATIVE); URINE SPECIFIC GRAVITY 1.019; UROBILINOGEN,URINE NEGATIVE mg/dL (<2.0)
[2017-12-20 15:52] LABS: URINE AMPHETAMINES SCREEN NEGATIVE; URINE BARBITURATES SCREEN NEGATIVE; URINE BENZODIAZEPINES SCREEN UNCONFIRMED POSITIVE; URINE COCAINE SCREEN NEGATIVE; URINE MARIJUANA (THC) SCREEN NEGATIVE; URINE METHADONE SCREEN NEGATIVE; URINE PHENCYCLIDINE SCREEN NEGATIVE
[2017-12-20] MEDS ORDERED: DEXTROSE 5%-1/2 NORMAL SALINE 1,000 ML IV ONE (16:06)
[2017-12-20] MEDS ORDERED: NORMAL SALINE 1000 ML 1,000 ML IV ONE (16:07)
--- NOTE | 2017-12-20 17:16 | PSYCHOLOGICAL NOTE ---
Psych Note - Psych Note Psych Note: Reason for evaluation: Bizarre Behavior/ Aggression Eval: 3:30 pm Final Disposition 4:30 pm Contact Permissions: Patient's hector choe real Roney [phone]; patient's daughter Jeannie Ramírez [phone]; patient's ex- Roc Ramírez [phone] Patient is a 42-year-old female. Presently patient is unable to answer assessment questions due to medications given upon entry. Patient requested clinician speak with family as she is too groggy to speak. Collateral information: Patient's Pepe Sim [phone] Patient's reports he understands some Faroese but primarily speaks Brazilian. Patient's reports his was hearing things that were not there, and was not the same. Patient's reports that she will ask about her daughter who is almost 4 months old when she wakes up in the morning but has not been caring for her at night. Patient's reports the daughter's grandmother is taking care of her right now and has been helping. Patient's reports he feels that he does not want her to go to a psychiatric hospital, believes that this is due to her not being on medications that are for her bipolar, and the fact that she has not been sleeping for days. Patient' s reports patient does not like people touching her. Patient's daughter Jeannie Ramírez [phone] Patient's daughter reports patient was breast-feeding and prior to that so she was taken off of her medication. Patient's daughter reports patient was prescribed Celexa 10 mg, Ambien 10 mg since October 2016 due to the and then breast-feeding. Patient's daughter reports that in the past she was diagnosed with bipolar 1 disorder and has seen both the nicki and depression with psychosis. Patient's daughter reports she is usually not aggressive and attributes her aggression upon entry due to her not liking being touched. Patient's daughter reports that she is not concerned for her mother hurting herself but does see that she blames herself a lot and is always over thinking. Patient's daughter reports that her grandfather had his eye taken out recently through surgery and that patient has been fixated on what he is going to look like without it and I and is worried about how she is going to react and has been preoccupied with these thoughts and unable to sleep for days. Patient's ex- Roc Ramírez [phone] Patient's ex- reports patient has been diagnosed bipolar for over 15 years. Patient's ex- reports patient had 3 major psychotic episodes, one in 2002, 1 and 2006, and the last episode in 2010 where she was seen at [facility] and then sent to [facility] for a total of 2 weeks due to experiencing nicki and responding to internal stimuli. Patient's ex- reports that he has seen her thinking about the past and not wanting to be alone , and wandering and is concerned for her safety. Patient's ex- reports that he would like the nursing staff to know that she will try to leave and wander the halls without knowing where she is because she has been very confused over the last week. Patient's ex- reports he took her to a doctor appointment on to address the medication and comment on the confusion, and her responding to internal stimuli stating that the doctor did not prescribe medications to help her sleep. Patient's ex- reports he thinks sleep deprivation is at the root of this episode as patient's daughter just started sleeping through the night, and yet she is still unable to sleep. Patient's ex- reports (although patient's did not report this) patient does not feel comfortable with holding her baby as she is worried about her getting hurt. Medication recommendations made by [facility] contracted provider Dr. Ricardo MD includes: 1. Begin Zyprexa 5 mg twice a day 2. Begin Depakote 250 mg twice a day 3. Begin Cogentin 1 mg daily 4. Begin Geodon 20 mg every 8 hours as needed for aggression and agitation Diagnosis: Per Hx ( Patient family report) Bipolar disorder with psychotic features Impression/plan: Recommendation for 24 hour petition due to patient reportedly experiencing nicki and responding to internal stimuli. At this time mental health was not able to fully assess patient, however clinician was able to gather collateral information from 3 family members. Mental health to reassess at a later time. Patient historically has a bipolar disorder and has had 3 prior episodes of psychosis while manic. Medication recommendations were made by contracted provider. Attending physician in agreement with plan. Consulted with Dr. Steen regarding the management and care of patient.
--- NOTE | 2017-12-20 17:20 | EKG REPORT ---
SEVERITY:- BORDERLINE ECG - SINUS TACHYCARDIA BORDERLINE T ABNORMALITIES, ANTERIOR LEADS : Confirmed by: Yumiko Villasenor 20-Dec-2017 17:19:31
[2017-12-20] MEDS ORDERED: ZIPRASIDONE MESYLATE INJ/PF 20 MG SDV IM PRN (17:50)
[2017-12-20] MEDS ORDERED: BENZTROPINE MESYLATE 1 MG TABLET PO SCH (18:00)
[2017-12-20] MEDS ORDERED: OLANZAPINE 5 MG TABLET PO SCH (18:00)
[2017-12-20] MEDS: DIVALPROEX SODIUM 250 MG TABLET.DR PO SCH (18:14)
[2017-12-21] MEDS ORDERED: OLANZAPINE 5 MG TABLET PO SCH (06:00)
[2017-12-21] MEDS: DIVALPROEX SODIUM 250 MG TABLET.DR PO SCH (10:26)
--- NOTE | 2017-12-21 10:42 | ER Document Report ---
Doctor's Note Notes: 12/21/17 10:41 Rounds: Chart reviewed. Patient not interviewed because she was being interviewed by mental health counselor when I made rounds. Patient is being evaluated for bipolar condition, unable to sleep for the last 5 days. Was confused. Had expressed some suicidal thoughts. Vital signs are all essentially normal. Lab studies also essentially normal, except that patient appears to be somewhat dehydrated. She has received several liters of fluid. Patient appears to be medically stable for transfer or discharge. Argelia Oneill MD
--- NOTE | 2017-12-21 11:15 | PSYCHOLOGICAL NOTE ---
Psych Note - Psych Note Psych Note: Reason for evaluation: Bizarre Behavior/ Aggression Contact Permissions: Patient's our only real Roney [phone]; patient's daughter Jeannie Ramírez [phone]; patient's ex- Ryan Ramírez [phone] Patient is a 42-year-old female. Patient reports she feels like this visit was related to not sleeping for 5 days. Patient reports although her 's said that she had not slept in 7 days it was actually 5. Patient reports she had been preoccupied with a lot of her stresses to include her father surgery. Patient reports that she has a good support system stating that her mother helps her with the baby a lot. Patient reports that the baby sleeps through the night but she still cannot sleep because the thoughts will not stop. Patient reports that she had multiple episodes where she ended up in a psychiatric hospital in the past because she was stopped taking her medications because she thought she did not need it. Patient reports it took her many years to except that she has bipolar disorder and that she will always be this way. Patient reports that she feels that Ryan knows her well and is able to take care of her. Patient reports if she had gone for meds sooner she thinks she would not have ended up in the hospital. Patient reports she was very confused and could not remember her own name. Patient reports that she had stopped taking medications because she was and breast-feeding but states she has not been a breast-feed anymore because she wants to take care of her mental health. Patient reports by taking care of her mental health she can take care of her baby. Patient reports when she is confused and feeling that way her takes care of the baby a lot and so does her mother. Patient reports that she has a great relationship with her daughter and states that her support system can help her get to her appointments. Patient reports she is a patient at [facility] and states she will go in as a walk-in to let them know about this visit as well as the medication changes. Collateral information: Patient's ex- Ryan Ramírez [phone] She is ex- reports that he will take patient to her appointments and make sure that she goes in as a walk-in and share this visits information. Patient's ex- reports that he does feel as if this visit was related to patient not sleeping and not being on medications for her bipolar disorder. Medication recommendations made by [facility] contracted provider Dr. Ricardo MD includes: 1. Continue Zyprexa 5 mg twice a day 2. Continue Depakote 250 mg twice a day 3. Continue Cogentin 1 mg daily Due to the changes in medication ,Patient will need prescription for 7- 10 days. Diagnosis: Bipolar Disorder ( Hypomanic) Impression/Plan: Patient is psychiatrically cleared for discharge.Patient denied SI/HI Recommendation to follow up with [facility] as a walk in. Clinician observed patient has improved since yesterday's assessment, patient is logical, linear, oriented to time, place and situation. Clinician observed patient was experiencing sleep deprivation and was not receiving medications for her bipolar disorder. Clinician observed patient describes symptoms congruent with hypomania however she will follow up with [facility]. Patient was discharged to her mother and 21 year old daughter. attending physician in agreement with plan. Consulted with Dr. Steen regarding the management and care of patient.
[2017-12-21 12:58] VITALS: BP 114/66
[2017-12-21] MEDS ORDERED: BENZTROPINE MESYLATE 1 MG TABLET PO SCH (18:00)
== END 2017-12-21 12:45 | disposition home or self-care (01) ==
LOC: ER 11:46
DX: F29 Unspecified psychosis not due to a substance or known physiological condition (principal); Z72.820 Sleep deprivation; F31.77 Bipolar disorder, in partial remission, most recent episode mixed; R00.0 Tachycardia, unspecified; Z88.8 Allergy status to other drugs, medicaments and biological substances
CPT/HCPCS: 93005; 99285; 96372; 96360; 36415; 80307 ×4; 84703; 85025; 80053; 81001; 93010; J3490 ×3; J3486; J7030

== ENCOUNTER → 2018-02-26 | Outpatient (CLI) | payer MEDICAID ==
--- NOTE | 2018-02-26 15:36 | RADIOLOGY REPORT (SQ) ---
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 TECHNIQUE: Dynamic and static grayscale images acquired of the kidneys and bladder and recorded on P ACS. Additional selected color Doppler and spectral images recorded. LIMITATIONS: None. FINDINGS: RIGHT KIDNEY: Normal size, 12.8 cm. Normal echogenicity. No solid or suspicious masses. No hydronephrosis. No calcifications. LEFT KIDNEY: Normal size, 11.1 cm. Normal echogenicity. No solid or suspicious masses. No hydronephr osis. No calcifications. BLADDER: Patient voided just before the exam the bladder cannot be evaluated. OTHER FINDINGS: Left ovary appears to be unremarkable. IMPRESSION: Normal renal ultrasound. The bladder could not be evaluated. TECHNICAL DOCUMENTATION: JOB ID: [id number] [employer]- All Rights Reserved Reading location - IP/workstation name: [email or web address]
== END ==
LOC: RAD 16:51
PROVIDERS: ATTEND Urology
DX: Q62.31 Congenital ureterocele, orthotopic (principal)
CPT/HCPCS: 76770

== ENCOUNTER → 2019-04-12 | Outpatient (CLI) | payer MEDICAID ==
[2019-04-12 08:45] LABS: ABSOLUTE EOSINOPHILS # (AUTO) 0.1 10^3/uL (0.0-0.6); ABSOLUTE LYMPHOCYTES (AUTO) 1.9 10^3/uL (0.5-4.7); ABSOLUTE MONOCYTES (AUTO) 0.5 10^3/uL (0.1-1.4); ABSOLUTE NEUT (AUTO) 4.1 10^3/uL (1.7-8.2); BASOPHILS % (AUTO) 0.5 % (0-2); EOSINOPHILS % (AUTO) 1.9 % (0-6); HEMATOCRIT 33.9 % (36.0-47.0); HEMOGLOBIN 11.2 g/dL (12.0-15.5); LYMPHOCYTES % (AUTO) 28.5 % (13-45); MEAN CORPUSCULAR HEMOGLOBIN 27.4 pg (27.0-33.4); MEAN CORPUSCULAR HGB CONC 33.1 g/dL (32.0-36.0); MEAN CORPUSCULAR VOLUME 83 fl (80-97); MONOCYTES % (AUTO) 7.9 % (3-13); PLATELET COUNT 269 10^3/uL (150-450); RED BLOOD COUNT 4.09 10^6/uL (3.72-5.28); RED CELL DISTRIBUTION WIDTH 14.6 % (11.5-14.0); SEGMENTED NEUTROPHILS % (AUTO) 61.2 % (42-78); TOTAL CELLS COUNTED % (AUTO) 100 %; WHITE BLOOD COUNT 6.7 10^3/uL (4.0-10.5)
[2019-04-12 09:05] LABS: ALBUMIN 4.4 g/dL (3.5-5.0); ALKALINE PHOSPHATASE 64 U/L (38-126); ANION GAP 9 (5-19); ASPARTATE AMINO TRANSFERASE 21 U/L (14-36); BILIRUBIN,DIRECT 0.1 mg/dL (0.0-0.4); BILIRUBIN,TOTAL 0.3 mg/dL (0.2-1.3); BLOOD UREA NITROGEN 9 mg/dL (7-20); CALCIUM 9.7 mg/dL (8.4-10.2); CARBON DIOXIDE 26 mmol/L (22-30); CHLORIDE 104 mmol/L (98-107); GLUCOSE 84 mg/dL (75-110); POTASSIUM 4.5 mmol/L (3.6-5.0); TOTAL PROTEIN 7.6 g/dL (6.3-8.2)
== END ==
LOC: OD 08:01
PROVIDERS: ATTEND Nurse Practitioner Psychiatric/Mental Health
DX: F90.2 Attention-deficit hyperactivity disorder, combined type (principal); Z79.899 Other long term (current) drug therapy
CPT/HCPCS: 36415; 80053; 80164; 85025

== ENCOUNTER → 2019-11-28 | Outpatient (CLI) | payer MEDICAID ==
[2019-11-28 12:34] LABS: APPEARANCE,URINE CLEAR; BILIRUBIN,URINE NEGATIVE (NEGATIVE); COLOR,URINE COLORLESS; GLUCOSE, URINE NEGATIVE (NEGATIVE); KETONES,URINE NEGATIVE (NEGATIVE); LEUKOCYTE ESTERASE,URINE NEGATIVE (NEGATIVE); NITRITE,URINE NEGATIVE (NEGATIVE); PROTEIN,URINE NEGATIVE (NEGATIVE); URINE SPECIFIC GRAVITY 1.002; UROBILINOGEN,URINE NEGATIVE mg/dL (<2.0)
--- NOTE | 2019-11-28 13:16 | RADIOLOGY REPORT (SQ) ---
EXAM DESCRIPTION: LUMBAR SPINE 2 VIEWS IMAGES COMPLETED DATE/TIME: 11/28/2019 12:03 pm REASON FOR STUDY: LOW BACK PAIN R35.0 FREQUENCY OF MICTURITION COMPARISON: None. NUMBER OF VIEWS: Two views. TECHNIQUE: AP and lateral radiographic images acquired of the lumbar spine. LIMITATIONS: None. FINDINGS: MINERALIZATION: Normal. SEGMENTATION: Normal. No transitional anatomy. ALIGNMENT: Normal. VERTEBRAE: Maintained height. No fracture or worrisome bone lesion. DISCS: Preserved height. No significant osteophytes or end plate irregularity. POSTERIOR ELEMENTS: Pedicles and facets are intact. No pars defect or posterior arch defects. HARDWARE: None in the spine. PARASPINAL SOFT TISSUES: Normal. PELVIS: Intact as visualized. No fractures or worrisome bone lesions. SI joints intact. OTHER: No other significant finding. IMPRESSION: NORMAL 2 VIEW LUMBAR SPINE. TECHNICAL DOCUMENTATION: JOB ID: [id number] 2010 [email or web address]- All Rights Reserved Reading location - IP/workstation name: [email or web address]
--- NOTE | 2019-11-28 13:18 | RADIOLOGY REPORT (SQ) ---
EXAM DESCRIPTION: KUB IMAGES COMPLETED DATE/TIME: 11/28/2019 12:03 pm REASON FOR STUDY: LOW BACK PAIN R35.0 FREQUENCY OF MICTURITION COMPARISON: None. NUMBER OF VIEWS: One view. TECHNIQUE: Supine radiographic image of the abdomen acquired. LIMITATIONS: None. FINDINGS: BOWEL GAS PATTERN: Normal bowel gas pattern. No dilated loops. CALCIFICATIONS: No suspicious calcifications. SOFT TISSUES: No gross mass or suggestion of organomegaly. HARDWARE: None in the abdomen. BONES: No acute fracture. No worrisome bone lesions. OTHER: No other significant finding. IMPRESSION: NO RADIOGRAPHIC EVIDENCE FOR ACUTE ABDOMINAL DISEASE. TECHNICAL DOCUMENTATION: JOB ID: [id number] 2010 [employer] All Rights Reserved Reading location - IP/workstation name: [email or web address]
== END ==
LOC: OD 11:37
PROVIDERS: ATTEND Family Medicine
DX: R35.0 Frequency of micturition (principal)
CPT/HCPCS: 72100; 74018; 81001; 87086

== ENCOUNTER → 2020-01-17 | Outpatient (CLI) | payer MEDICAID ==
--- NOTE | 2020-01-17 16:23 | RADIOLOGY REPORT (SQ) ---
EXAM DESCRIPTION: U/S NON-OB PELVIS W/O DOP IMAGES COMPLETED DATE/TIME: 01/17/2020 3:49 pm REASON FOR STUDY: R10.2 PELVIC AND PERINEAL PAIN R10.2 PELVIC AND PERINEAL PAIN COMPARISON: 02/26/2018 TECHNIQUE: Dynamic and static grayscale images acquired of the pelvis via transabdominal approach an d recorded on PACS. Additional selected color Doppler and spectral images recorded. LIMITATIONS: None. FINDINGS: UTERUS: Normal in size and contour measuring 9.1 x 6.4 x 4.9 cm. No focal lesions. ENDOMETRIAL STRIPE: Endometrial stripe measures 12 mm with small amount of fluid within the endometri al canal. CERVIX: No nabothian cysts. RIGHT OVARY AND DOPPLER: Normal size measuring 4.5 x 2.0 x 2.4 cm. Simple appearing cystic lesion me asuring up to 2.5 cm, likely functional cyst. This requires no follow-up. No worrisome masses. Lay l arterial vascular flow without evidence for torsion. LEFT OVARY AND DOPPLER: Normal size measuring 2.8 x 1.9 x 2.0 cm. No worrisome masses. Normal arteria l vascular flow without evidence for torsion. FREE FLUID: Trace free fluid within the cul-de-sac, likely physiologic OTHER: Cystic lesion within the bladder at the expected location of the ureteral vesicular junction m ost compatible with a ureterocele. Cine images demonstrate repetitive filling and decompression of t his lesion. IMPRESSION: 1. Endometrial stripe measures 12 mm which is within normal limits for premenopausal pa tients. Trace free fluid within the pelvic cul-de-sac, likely physiologic. 2. Cystic lesion within the urinary bladder at the level of the left ureterovesicular junction most compatible with a ureterocele. Dedicated renal ultrasound should be considered for further evaluatio n for associated hydronephrosis. TECHNICAL DOCUMENTATION: JOB ID: [id number] 2010 [employer]- All Rights Reserved Rev Reading location - IP/workstation name: [email or web address]
== END ==
LOC: RAD 14:35
PROVIDERS: ATTEND Family Medicine
DX: R10.2 Pelvic and perineal pain (principal)
CPT/HCPCS: 76856

== ENCOUNTER → 2020-02-02 | Outpatient (CLI) | payer MEDICAID ==
--- NOTE | 2020-02-02 16:16 | RADIOLOGY REPORT (SQ) ---
EXAM DESCRIPTION: U/S RETROPERITON (RENAL/AORTA) IMAGES COMPLETED DATE/TIME: 02/02/2020 3:52 pm REASON FOR STUDY: (N32.9) BLADDER MASS N32.9 BLADDER DISORDER, UNSPECIFIED COMPARISON: 02/26/2018 TECHNIQUE: Dynamic and static grayscale images acquired of the kidneys and bladder and recorded on P ACS. Additional selected color Doppler and spectral images recorded. LIMITATIONS: None. FINDINGS: RIGHT KIDNEY: Normal size. Normal echogenicity. No solid or suspicious masses. No hydronep hrosis. No calcifications. LEFT KIDNEY: Normal size. Normal echogenicity. No solid or suspicious masses. No hydronephrosis. No calcifications. BLADDER: Dependent cystic structure with appearance typical of ureterocele. OTHER FINDINGS: No other significant finding. IMPRESSION: Ureterocele. No hydronephrosis. TECHNICAL DOCUMENTATION: JOB ID: [id number] 2010 [employer]- All Rights Reserved Reading location - IP/workstation name: [email or web address]
== END ==
LOC: RAD 14:10
PROVIDERS: ATTEND Family Medicine
DX: N32.9 Bladder disorder, unspecified (principal)
CPT/HCPCS: 76770

== ENCOUNTER → 2020-04-12 | Outpatient (CLI) | payer MEDICAID ==
[2020-04-12 12:31] LABS: ABSOLUTE EOSINOPHILS # (AUTO) 0.1 10^3/uL (0.0-0.6); ABSOLUTE LYMPHOCYTES (AUTO) 1.9 10^3/uL (0.5-4.7); ABSOLUTE MONOCYTES (AUTO) 0.4 10^3/uL (0.1-1.4); ABSOLUTE NEUT (AUTO) 4.3 10^3/uL (1.7-8.2); BASOPHILS % (AUTO) 0.3 % (0-2); EOSINOPHILS % (AUTO) 1.4 % (0-6); HEMATOCRIT 30.4 % (36.0-47.0); MEAN CORPUSCULAR HEMOGLOBIN 25.3 pg (27.0-33.4); MEAN CORPUSCULAR HGB CONC 32.9 g/dL (32.0-36.0); MEAN CORPUSCULAR VOLUME 77 fl (80-97); MONOCYTES % (AUTO) 6.4 % (3-13); PLATELET COUNT 309 10^3/uL (150-450); RED BLOOD COUNT 3.95 10^6/uL (3.72-5.28); RED CELL DISTRIBUTION WIDTH 15.9 % (11.5-14.0); SEGMENTED NEUTROPHILS % (AUTO) 63.9 % (42-78); TOTAL CELLS COUNTED % (AUTO) 100 %; WHITE BLOOD COUNT 6.8 10^3/uL (4.0-10.5)
[2020-04-12 12:35] LABS: ALBUMIN 4.4 g/dL (3.5-5.0); ALKALINE PHOSPHATASE 66 U/L (38-126); ANION GAP 8 (5-19); ASPARTATE AMINO TRANSFERASE 17 U/L (14-36); BILIRUBIN,TOTAL 0.3 mg/dL (0.2-1.3); BLOOD UREA NITROGEN 6 mg/dL (7-20); CALCIUM 9.3 mg/dL (8.4-10.2); CARBON DIOXIDE 24 mmol/L (22-30); CHLORIDE 105 mmol/L (98-107); GLUCOSE 82 mg/dL (75-110); POTASSIUM 4.5 mmol/L (3.6-5.0); TOTAL PROTEIN 8.2 g/dL (6.3-8.2)
== END ==
LOC: OD 11:09
PROVIDERS: ATTEND Nurse Practitioner Psychiatric/Mental Health
DX: F31.32 Bipolar disorder, current episode depressed, moderate (principal); Z79.899 Other long term (current) drug therapy
CPT/HCPCS: 36415; 80053; 80164; 85025